=== PATIENT | female | born 1985 | race African-American/Black ===

== ENCOUNTER → 2017-12-11 | Outpatient (CLI) | payer OTHER | LOC: ULTRA 10:16 | DX: D25.9 Leiomyoma of uterus, unspecified (principal) ==

== ENCOUNTER → 2018-04-27 | Outpatient (CLI) | payer OTHER | LOC: RAD 14:08 | DX: R07.9 Chest pain, unspecified (principal); R05 Cough; R06.02 Shortness of breath ==

== ENCOUNTER → 2019-03-25 | Outpatient (CLI) | payer BC, OTHER | LOC: ULTRA 12:00 | DX: D21.9 Benign neoplasm of connective and other soft tissue, unspecified (principal); Z88.0 Allergy status to penicillin; Z88.2 Allergy status to sulfonamides ==

== ENCOUNTER → 2020-08-06 | Outpatient (CLI) | payer BC | LOC: ULTRA 08:30 | PROVIDERS: ATTEND Family Medicine | DX: K80.80 Other cholelithiasis without obstruction (principal) ==

== ENCOUNTER → 2020-11-09 | Outpatient (CLI) | payer BC ==
[~2020-11-09] MED LIST: ADVAIR 250-501 EACH INH; ALBUTEROL2.5 MG/0.1 INH; COLACE 100 MG100 MG PO; DIFLUCAN100 MG PO; DOMPERIDONE PO; IBUPROFEN 200200 M1 PO; MIRALAX17 GM PO; MULTIPLE VITAM1 EAC4 PO; OMEPRAZOLE40 MG PO; OXYCODONE HCL 55 MG PO; TYLENOL325 MG PO; VENTOLIN HFA 1818 GM INH
== END ==
LOC: LAB 08:32
PROVIDERS: ATTEND Student in an Organized Health Care Education/Training Program
DX: Z01.812 Encounter for preprocedural laboratory examination (principal); Z20.822 Contact with and (suspected) exposure to COVID-19

== ENCOUNTER 2020-11-11 11:37 | Day surgery (SDC) | payer BC ==
[~2020-11-11] VITALS: Ht 175.3 cm; Wt 81.6 kg
[~2020-11-11 11:37] MED LIST changes: -COLACE 100 MG100 MG PO; -IBUPROFEN 200200 M1 PO; -MIRALAX17 GM PO; -OXYCODONE HCL 55 MG PO; -TYLENOL325 MG PO
[2020-11-11 12:42] VITALS: BP 124/86
[2020-11-11] MEDS ORDERED: COLACE 100 MG100 MG PO (13:29)
[2020-11-11] MEDS ORDERED: OXYCODONE HCL 55 MG PO (13:29)
[2020-11-11] MEDS ORDERED: MIRALAX17 GM PO (13:29)
[2020-11-11] MEDS ORDERED: IBUPROFEN 200200 M1 PO (13:29)
[2020-11-11] MEDS ORDERED: TYLENOL325 MG PO (13:29)
[2020-11-11 15:17] VITALS: BP 124/86
--- NOTE | 2020-11-17 19:06 | PATH ---
[facility] [address] [place] [address] PATHOLOGY RPT PROCEDURE Name: JOSEFINA CORDOBA Room #: DEP [facility] M.R.#: [id number] Admission: 11/11/20 Date of : 87 Discharge: 11/11/20 Report #: [id number] Path Case #: [id number] [facility] Accession Number: [id number] . 01 Material submitted: . gallbladder - GALLBLADDER . 01 Clinical history: . LAPAROSCOPIC CHOLECYSTECTOMY SYMPTOMATIC CHOLELITHIASIS . 02 Diagnosis: Gallbladder, cholecystectomy: - Mild chronic cholecystitis. - Cholelithiasis. - Cholesterolosis. (IUV:pipe liner; 11/17/2020) MBR 11/17/2020 [facility] Local . 02 Electronically signed: . Philomena Darling MD, Pathologist NPI- [id number] . 01 Gross description: . Fixative: Formalin Labeled: Gallbladder Specimen received: Intact Dimensions: 7.6 x 2.8 x 2.6 cm Serosa: Smooth, yellow-green with a roughened hepatic bed Lymph node: No Mucosa: Velvety, brown green with gupta yellow stippling Average wall thickness: 0.3 cm Calculi: Multiple gupta-yellow nodular calculi measuring in aggregate 2.1 x 1.1 x 0.9 cm Abnormalities: None A1- Supplies Packer body, fundus, and the cystic duct margin(inked black). ([facility]; 11/14/2020) GZA/GZA 11/17/2020 1444 Local . 02 Pathologist provided ICD-10: K80.10, K82.4 . 02 CPT . 159550 Specimen Comment: A courtesy copy of this report has been sent to [phone], [phone] Specimen Comment: [address] [place] [address] PATHOLOGY RPT PROCEDURE Name: JOSEFINA CORDOBA LOIS [id number] Admission: 11/11/20 Date of : 87 Discharge: 11/11/20 Report #: [id number] Path Case #: [id number] Specimen Comment: Report sent to / DR ONOFRE Performed at: 01 [facility] [place] [address], [place], [place] [id number] MD Awais Leung MD Phone: [phone] Performed at: [address] [id number] MD Philomena Darling MD Phone: [phone]
== END 2020-11-11 15:00 | disposition home or self-care (01) ==
LOC: OR 11:37
PROVIDERS: ATTEND Surgery
DX: K80.10 Calculus of gallbladder with chronic cholecystitis without obstruction (principal); R10.11 Right upper quadrant pain; J45.909 Unspecified asthma, uncomplicated; K21.9 Gastro-esophageal reflux disease without esophagitis; F10.10 Alcohol abuse, uncomplicated; Z98.890 Other specified postprocedural states; Z79.899 Other long term (current) drug therapy; Z90.49 Acquired absence of other specified parts of digestive tract; Z88.0 Allergy status to penicillin; Z88.2 Allergy status to sulfonamides
CPT/HCPCS: 50010; 50101; 50411; 50555; 50558; 52265; 52266; 53307; 53310; 53312; 54022; 54118; 55245; 56462; 56525; 56526; 58574; 62110; 62900; 70005

== ENCOUNTER → 2020-11-20 | Outpatient (CLI) | payer BC ==
[~2020-11-20] MED LIST changes: +COLACE 100 MG100 MG PO; +IBUPROFEN 200200 M1 PO; +MIRALAX17 GM PO; +OXYCODONE HCL 55 MG PO; +TYLENOL325 MG PO
== END ==
LOC: CAT 14:49
PROVIDERS: ATTEND Surgery
DX: K76.0 Fatty (change of) liver, not elsewhere classified (principal); N85.8 Other specified noninflammatory disorders of uterus; R10.9 Unspecified abdominal pain; Z90.49 Acquired absence of other specified parts of digestive tract